=== PATIENT | female | born 1980 | race Two or more races ===

== ENCOUNTER 2016-10-16 12:58 | Emergency (ER) | payer OTHER ==
[~2016-10-16] VITALS: Ht 154.9 cm; Wt 75.9 kg
[2016-10-16 13:17] VITALS: BP 132/88
== END 2016-10-16 16:28 | disposition home or self-care (01) ==
LOC: ED 14:15
DX: S63.512A Sprain of carpal joint of left wrist, initial encounter (principal); V43.52XA Car driver injured in collision with other type car in traffic accident, initial encounter; Y93.89 Activity, other specified; Y92.410 Unspecified street and highway as the place of occurrence of the external cause; Y99.8 Other external cause status
CPT/HCPCS: 99282